=== PATIENT | male | born 1980 | race Caucasian/White ===

== ENCOUNTER → 2020-10-24 | Outpatient (CLI) | payer OTHER | LOC: LAB 07:45 | PROVIDERS: ATTEND Anesthesiology | DX: Z01.812 Encounter for preprocedural laboratory examination (principal); Z20.822 Contact with and (suspected) exposure to COVID-19 ==

== ENCOUNTER → 2020-11-12 | Outpatient (CLI) | payer OTHER | LOC: HYPER 09:09 | PROVIDERS: ATTEND Specialist | DX: T81.31XA Disruption of external operation (surgical) wound, not elsewhere classified, initial encounter (principal); L05.91 Pilonidal cyst without abscess; B36.9 Superficial mycosis, unspecified; E66.09 Other obesity due to excess calories; I10 Essential (primary) hypertension; J45.909 Unspecified asthma, uncomplicated; M16.11 Unilateral primary osteoarthritis, right hip; F17.290 Nicotine dependence, other tobacco product, uncomplicated; Z68.37 Body mass index [BMI] 37.0-37.9, adult; Y92.238 Other place in hospital as the place of occurrence of the external cause; Y83.8 Other surgical procedures as the cause of abnormal reaction of the patient, or of later complication, without mention of misadventure at the time of the procedure ==

== ENCOUNTER → 2020-11-19 | Outpatient (CLI) | payer OTHER | LOC: HYPER 09:04 | PROVIDERS: ATTEND Specialist | DX: T81.31XD Disruption of external operation (surgical) wound, not elsewhere classified, subsequent encounter (principal); L05.91 Pilonidal cyst without abscess; B36.9 Superficial mycosis, unspecified; E66.09 Other obesity due to excess calories; Z68.37 Body mass index [BMI] 37.0-37.9, adult; Y83.8 Other surgical procedures as the cause of abnormal reaction of the patient, or of later complication, without mention of misadventure at the time of the procedure ==

== ENCOUNTER → 2020-11-26 | Outpatient (CLI) | payer OTHER | LOC: HYPER 07:40 | PROVIDERS: ATTEND Specialist | DX: T81.31XD Disruption of external operation (surgical) wound, not elsewhere classified, subsequent encounter (principal); L98.492 Non-pressure chronic ulcer of skin of other sites with fat layer exposed; L05.91 Pilonidal cyst without abscess; J45.909 Unspecified asthma, uncomplicated; B36.9 Superficial mycosis, unspecified; I10 Essential (primary) hypertension; E66.09 Other obesity due to excess calories; M16.11 Unilateral primary osteoarthritis, right hip; Z68.37 Body mass index [BMI] 37.0-37.9, adult; Y83.8 Other surgical procedures as the cause of abnormal reaction of the patient, or of later complication, without mention of misadventure at the time of the procedure ==